=== PATIENT | male | born 1930 | race Caucasian/White ===

== ENCOUNTER → 2017-04-02 | Outpatient (CLI) | payer MEDICARE ==
[~2017-04-02] MED LIST: ASPIRIN81 M1 PO; NORVASC5 MG PO; VITAMIN D32000 UNIT PO; [UNRECOGNIZED DRUG - OTHER] PO
[2017-04-02 08:23] LABS: BASO # 0.1 10*3/uL (0.0-0.1); BASO % 0.7 % (0.0-1.0); EOS # 0.2 10*3/uL (0.0-0.4); EOS % 2.1 % (1.0-4.0); HEMATOCRIT 38.7 % (42.0-52.0); HEMOGLOBIN 12.2 g/dl (14.0-18.0); LYMPH # 1.5 10*3/uL (1.3-4.4); LYMPH % 20.2 % (27.0-41.0); MEAN CELL VOLUME 86.6 fl (80.0-94.0); MEAN CORPUSCULAR HGB 27.3 pg (27.0-31.0); MEAN CORPUSCULAR HGB CONC 31.5 g/dl (33.0-37.0); MEAN PLATELET VOLUME 10.2 fl (9.6-12.3); MONO # 0.8 10*3/uL (0.1-1.0); MONO % 10.9 % (3.0-9.0); NEUT % 65.8 % (47.0-73.0); PLATELET COUNT AUTOMATED 309 10*3/uL (130-400); RED BLOOD COUNT 4.47 10*6/uL (4.50-5.90); RED CELL DISTRI WIDTH 15.9 % (0-14.5); WHITE BLOOD COUNT 7.5 10*3/uL (4.8-10.8)
[2017-04-02 08:30] LABS: ALBUMIN 3.5 gm/dl (3.1-4.5); ALKALINE PHOSPHATASE 116 U/L (45-117); BUN 17 mg/dl (7-24); CHLORIDE 105 mmol/L (98-107); CHOLESTEROL 215 mg/dL (<200); CREATININE 1.05 mg/dL (0.70-1.30); HDL CHOLESTEROL 89 mg/dl (40-60); LDL CHOLESTEROL 105 mg/dL (9-159); POTASSIUM 4.3 mmol/L (3.5-5.1); SGOT/AST 21 IU/L (3-35); SGPT/ALT 17 U/L (12-78); SODIUM 140 mmol/L (136-145); TOTAL PROTEIN 7.4 gm/dL (6.4-8.2); TRIGLYCERIDES 106 mg/dl (<150); VLDL CHOLESTEROL 21 mg/dL (6-40)
== END | disposition home or self-care (01) ==
LOC: LAB 02:50
PROVIDERS: Internal Medicine
DX: Z12.5 Encounter for screening for malignant neoplasm of prostate (principal); I10 Essential (primary) hypertension; E78.00 Pure hypercholesterolemia, unspecified; E55.9 Vitamin D deficiency, unspecified; R35.1 Nocturia

== ENCOUNTER → 2017-10-08 | Outpatient (CLI) | payer MEDICARE ==
[2017-10-08 07:42] LABS: BASO % 0.7 % (0.0-1.0); EOS # 0.2 10*3/uL (0.0-0.4); EOS % 3.2 % (1.0-4.0); HEMATOCRIT 37.4 % (42.0-52.0); HEMOGLOBIN 11.5 g/dl (14.0-18.0); LYMPH # 1.5 10*3/uL (1.3-4.4); LYMPH % 25.8 % (27.0-41.0); MEAN CELL VOLUME 87.2 fl (80.0-94.0); MEAN CORPUSCULAR HGB 26.8 pg (27.0-31.0); MEAN CORPUSCULAR HGB CONC 30.7 g/dl (33.0-37.0); MEAN PLATELET VOLUME 10.2 fl (9.6-12.3); MONO # 0.7 10*3/uL (0.1-1.0); MONO % 13.1 % (3.0-9.0); NEUT # 3.2 10*3/uL (2.3-7.9); PLATELET COUNT AUTOMATED 281 10*3/uL (130-400); RED BLOOD COUNT 4.29 10*6/uL (4.50-5.90); RED CELL DISTRI WIDTH 16.6 % (0-14.5); WHITE BLOOD COUNT 5.7 10*3/uL (4.8-10.8)
[2017-10-08 08:10] LABS: ALBUMIN 3.5 gm/dl (3.1-4.5); BUN 15 mg/dl (7-24); CHLORIDE 106 mmol/L (98-107); CHOLESTEROL 219 mg/dL (<200); POTASSIUM 3.9 mmol/L (3.5-5.1); SODIUM 141 mmol/L (136-145)
[2017-10-08 08:21] LABS: ALKALINE PHOSPHATASE 104 U/L (45-117); CREATININE 1.06 mg/dL (0.70-1.30); HDL CHOLESTEROL 75 mg/dl (40-60); LDL CHOLESTEROL 123 mg/dL (9-159); SGOT/AST 20 IU/L (3-35); SGPT/ALT 17 U/L (12-78); TOTAL PROTEIN 7.1 gm/dL (6.4-8.2); TRIGLYCERIDES 104 mg/dl (<150); VLDL CHOLESTEROL 21 mg/dL (6-40)
== END | disposition home or self-care (01) ==
LOC: LAB 02:21
PROVIDERS: Internal Medicine
DX: I10 Essential (primary) hypertension (principal); E55.9 Vitamin D deficiency, unspecified

== ENCOUNTER → 2018-02-11 | Outpatient (CLI) | payer MEDICARE | END | disposition home or self-care (01) | LOC: LAB 10:02 | DX: I10 Essential (primary) hypertension (principal); E78.00 Pure hypercholesterolemia, unspecified; Z79.899 Other long term (current) drug therapy; D64.9 Anemia, unspecified ==

== ENCOUNTER 2019-06-21 22:18 | Inpatient (IN) | payer MEDICARE ==
[~2019-06-21] VITALS: Ht 172.7 cm; Wt 62.7 kg
[2019-06-21 22:19] VITALS: BP 131/48
[2019-06-21 23:05] VITALS: BP 107/48
[2019-06-21 23:25] LABS: HEMATOCRIT 21.7 % (42.0-52.0); MEAN CELL VOLUME 101.9 fl (80.0-94.0); MEAN CORPUSCULAR HGB 31.5 pg (27.0-31.0); MEAN CORPUSCULAR HGB CONC 30.9 g/dl (33.0-37.0); PLATELET COUNT AUTOMATED 246 10*3/uL (130-400); RED BLOOD COUNT 2.13 10*6/uL (4.50-5.90); RED CELL DISTRI WIDTH 14.2 % (0-14.5); WHITE BLOOD COUNT 28.3 10*3/uL (4.8-10.8)
[2019-06-21 23:28] LABS: HEMOGLOBIN 6.7 g/dl (14.0-18.0)
[2019-06-21 23:35] LABS: ACT PARTIAL THROMBO TIME 23.4 SECONDS (20.0-32.1)
[2019-06-21 23:45] LABS: ALBUMIN 2.9 gm/dl (3.1-4.5); CREATININE 2.18 mg/dL (0.70-1.30); POTASSIUM 4.4 mmol/L (3.5-5.1); TOTAL PROTEIN 5.8 gm/dL (6.4-8.2); TROPONIN I 0.028 ng/ml (<0.045)
[2019-06-21 23:49] LABS: BURR CELLS MODERATE; PLATELET SUFFICIENCY NORMAL (NORMAL); TOTAL CELLS COUNTED 100 #CELLS
[2019-06-21 23:50] LABS: SCHISTOCYTES FEW
[2019-06-21 23:55] LABS: OVALOCYTES MODERATE
[2019-06-22] VITALS (14 sets, daily range): BP systolic 103–134; BP diastolic 41–89
--- NOTE | 2019-06-22 00:06 | NUR ---
MD ANDERSEN AT BEDSIDE FOR TRIPLE LUMEN CENTRAL LINE PLACEMENT IN RT FEM.PT TOLERATED WELL.
--- NOTE | 2019-06-22 00:47 | NUR ---
INFUSION PROTONIX COMPLETED.
--- NOTE | 2019-06-22 00:48 | NUR ---
MRSA SWAB OBTAINED,LABELED AND SENT TO LAB.
--- NOTE | 2019-06-22 01:00 | NUR ---
A 89, admitted to ICCU, under the services of JAYCOB Beauchamp DO with a diagnosis of GI BLEED. Chief complaint is BRIGHT RED RECTAL BLOOD LOSS. Patient arrived via stretcher from ER. Monitor applied. Initial assessment completed. Vital signs taken and recorded. JAYCOB BEAUCHAMP DO notified of admission to the unit. Orders received. See assessment for past medical history, medications and allergies. Patient and/or family oriented to unit. [facility]U visitation policy reviewed. Clothing/patient valuable form completed. WARREN SHELDON
--- NOTE | 2019-06-22 01:00 | NUR ---
PER MD ANDERSEN ORDER OF 0.45 SODIUM CHLORIDE ON HOLD AT THIS TIME. UNAWARE OF ORDER.
--- NOTE | 2019-06-22 01:50 | NUR ---
JULIETA BLAKE AND BUTCH NOTIFIED OF LACTIC ACID 9.1 AND TROPONIN 0.037.
--- NOTE | 2019-06-22 02:08 | NUR ---
ER DID NOT NOTIFY DR BALES PER REPORTED REQUEST. DR RAE NOTIFIED OF THIS AND WANTS ME TO CALL HIM NOW.
--- NOTE | 2019-06-22 02:15 | NUR ---
DR BALES NOTIFIED OF CONSULT AND CURRENT PLAN OF CARE. NO NEW ORDERS RECEIVED.
--- NOTE | 2019-06-22 02:29 | NUR ---
ZOFRAN ORDERED AND PER PT REQUEST FOR NAUSEA.
--- NOTE | 2019-06-22 03:12 | NUR ---
PT STATES ZOFRAN EFFECTIVE FOR NAUSEA.
--- NOTE | 2019-06-22 04:00 | NUR ---
FIRST UNIT PRBC'S DONE.
--- NOTE | 2019-06-22 04:11 | NUR ---
LAB HERE FOR TROPONIN AND LACTIC ACID. I INFORMED DR RAE THAT FIRST UNIT PACKED CELLS JUST FINISHED AND SENT FOR 2ND UNIT. CBC WILL BE DRAWN AT 0900 APPROXIMATELY 2HRS POST TRANSFUSION.
--- NOTE | 2019-06-22 04:30 | NUR ---
SECOND UNIT OF PRBC'S UP WITH NEW TUBING.
[2019-06-22 04:57] LABS: ALBUMIN 2.5 gm/dl (3.1-4.5); CREATININE 1.79 mg/dL (0.70-1.30); FREE T4 0.85 ng/dl (0.76-1.46); PHOSPHOROUS 3.5 mg/dL (2.5-4.9); POTASSIUM 4.7 mmol/L (3.5-5.1)
--- NOTE | 2019-06-22 04:57 | NUR ---
NO S&S OF TRANSFUSION REACTION.
[2019-06-22 05:02] LABS: THYROID STIM HORMONE (HS) 2.57 uIU/ml (0.358-4.75)
--- NOTE | 2019-06-22 05:11 | NUR ---
DR BLAKE NOTIFIED OF LACTIC ACID DOWN TO 2.5, TROPONIN 0.046 AND THAT PT HASN'T VOIDED SINCE HIS ADMISSION AT 0100. PT STATES "I HAVEN'T BEEN DRINKING MUCH AT ALL", SMILES, AND TELLS ME A JOKE. VSS. NO S&S OF BLEEDING.
--- NOTE | 2019-06-22 06:30 | NUR ---
SECOND UNIT DONE.
--- NOTE | 2019-06-22 06:42 | NUR ---
UP TO BSC AND VOIDING IN URINAL AT THIS TIME.
--- NOTE | 2019-06-22 06:48 | NUR ---
PT HAD BEEN GETTING OUT OF BED BY HIMSELF. HE ONLY VOIDED 50CC GEE URINE. HE DID NOT MOVE HIS BOWELS. REINFORCED NEED FOR CALL LIGHT USAGE. RETURN DEMONSTRATION DONE. BED EXIT ALARM ON FOR SAFETY.
--- NOTE | 2019-06-22 08:00 | NUR ---
FAMILY AND PATIENT HAS AGREED THAT THEY WANT TO BE TRANSFERRED TO [facility]. DR. BALES AND SURGERY TEAM NOTIFIED
[2019-06-22 09:06] LABS: VITAMIN D, 25-HYDROXY 53.8 ng/mL (30-100)
[2019-06-22 09:22] LABS: HEMATOCRIT 23.4 % (42.0-52.0); HEMOGLOBIN 7.8 g/dl (14.0-18.0); MEAN CORPUSCULAR HGB 31.2 pg (27.0-31.0); MEAN CORPUSCULAR HGB CONC 33.3 g/dl (33.0-37.0); MEAN PLATELET VOLUME 10.6 fl (9.6-12.3); NUCLEATED RED BLOOD CELL 0.1 % (0.0-0.0); RED CELL DISTRI WIDTH 14.3 % (0-14.5); WHITE BLOOD COUNT 19.4 10*3/uL (4.8-10.8)
[2019-06-22 09:23] LABS: MEAN CELL VOLUME 93.6 fl (80.0-94.0); PLATELET COUNT AUTOMATED 152 10*3/uL (130-400)
--- NOTE | 2019-06-22 09:40 | NUR ---
MIQUEL CARD [id number] Please refer to the physician's history and physical for past medical history, comorbid conditions, and allergies. Diagnosis: GALINDO GI BLEED HYPONATREMIA ACUTE KIDNEY FAILURE W/ Martín Score: 17,AT RISK WOUND DESCRIPTIONS: Wound Number: 1 Location of the wound: left lateral aspect of knee Type of wound: abrasion Thickness: Partial Size: 2.5cm x 1.7cm x <0.1cm Tunneling: none Undermining: none Sinus Tract: none Presence of Exudate: none Amount: None Color: Red, brown Odor: None Periwound Skin Appearance: Normal Wound edges: approximated Pain (associated with wound): none at time of assessment How does patient state this happened? pt stated that he was down for several hours and was trying to scoot across the floor Wound Number: 2 Ecchymotic area noted to right foot metarsal at time of assessment. No open areas noted at time of assessment. Wound Number: 3 Location of the wound: right ankle Type of wound: abrasion Thickness: Partial Size: 0.6cm x 0.4cm x <0.1cm Tunneling: none Undermining: none Sinus Tract: none Presence of Exudate: none Amount: None Color: Brown, red Odor: None Periwound Skin Appearance: ecchymotic areas noted to surrounding area at time of assessment. Wound edges: approximated Pain (associated with wound): none at time of assessment How does patient state this happened? pt stated that he was down for several hours and was trying to scoot across the floor Wound Number: 4 Ecchymotic area noted to left foot metarsal at time of assessment. No open areas noted at time of assessment. Wound Number: 5 Location of the wound: right knee Type of wound: abrasion Thickness: Partial Size: 0.8cm x 0.4cm x <0.1cm Tunneling: none Undermining: none Sinus Tract: none Presence of Exudate: none Amount: None Color: Red Odor: None Periwound Skin Appearance: Normal Wound edges: approximated Pain (associated with wound): none at time of assessment How does patient state this happened? pt stated that he was down for several hours and was trying to scoot across the floor No open areas noted to buttocks at time of assessment. Patient stated he was laying down for about 12 hours. No drainage noted at time of assessment. Surface the patient is resting on: Isoflex SKIN PREVENTION RECOMMENDATION: 1. Pressure redistribution support surface as appropriate 2. Elevate heels 3. Remove boots/TEDS every shift and reapply 4. Head of bed 30 degrees as tolerated 5. Assess nutrition and hydration 6. Manage moisture 7. Avoid the use of containment devices while in bed 8. Use absorptive products on surfaces limit layers of linens on bed 9. Turn and reposition every 1-2 hours in bed and every 1 hour in chair as tolerated 10. Weight shifts every 15 minutes while up in chair 11. Offloading with pillows or device to keep heels elevated off bed 12. Monitor skin at least every shift 13. Inspect under medical devices twice a day WOUND TREATMENT RECOMMENDATIONS: Ria marsh guidelines: Cleanse right knee, right lateral aspect of ankle, and left lateral aspect of knee with nss and apply sureprep around the wound hydrogel to wound bed and cover with optifoam gentle. Heel raiser pro boots to bilateral feet at time of assessment. Wheelchair cushion when oob.
[2019-06-22 09:42] LABS: OVALOCYTES FEW; PLATELET SUFFICIENCY NORMAL (NORMAL); POLYCHROMASIA SLIGHT; TOTAL CELLS COUNTED 100 #CELLS
[2019-06-22 09:43] LABS: SCHISTOCYTES FEW
--- NOTE | 2019-06-22 10:01 | NUR ---
Occupational therapy orders received and chart reviewed. Per discussion with nursing, patient is being transferred out today. No OT services needed at this time. Thank you. Kayla Hamilton, OTR/L
[2019-06-22] MEDS ORDERED: PROTONIX40 MG PO (10:29)
--- NOTE | 2019-06-22 10:45 | NUR ---
PHYSICAL THERAPY Chart reviewed deferred eval at this time as per nurse Kristina be being transfered to [facility] today. Will cancel PT orders at this time due to transfer to another facility. Genesis Manzanares PT
--- NOTE | 2019-06-22 10:45 | NUR ---
Wound care recommendations given to nurse caring for patient.
--- NOTE | 2019-06-22 13:10 | NUR ---
ONE CALL CALLED AND QUESTIONED REGARDING STATUS OF BED. THEY DO NOT HAVE A BED AT THIS TIME.
--- NOTE | 2019-06-22 13:20 | NUR ---
ONE CALL RETURNED CALL AND UPDATED ON CURRENT VITAL SIGNS AND HH RESULTS. THEY STATE THAT THEY SHOULD HAVE A BED THIS AFTERNOON.
--- NOTE | 2019-06-22 16:55 | NUR ---
REPORT GIVEN TO [facility]. FAMILY CALLED AND NOTIFIED OF TRANSFER
--- NOTE | 2019-06-22 18:33 | NUR ---
DISCHARGED TO [facility] VIA [facility].
== END 2019-06-22 18:33 | disposition short-term general hospital (02) | DRG 377 ==
LOC: ED 22:18 → EDHOLD 06-22 00:30 → ICCU 06-22 00:30
PROVIDERS: Emergency Medicine; Internal Medicine; ADMIT Internal Medicine
PROC: 30233N1 Transfusion of Nonautologous Red Blood Cells into Peripheral Vein, Percutaneous Approach (ICD-10-PCS; principal; 2019-06-22)
DX: K92.2 Gastrointestinal hemorrhage, unspecified (principal); N17.0 Acute kidney failure with tubular necrosis; E43 Unspecified severe protein-calorie malnutrition; E87.0 Hyperosmolality and hypernatremia; E87.2 Acidosis; R65.10 Systemic inflammatory response syndrome (SIRS) of non-infectious origin without acute organ dysfunction; E86.0 Dehydration; R73.9 Hyperglycemia, unspecified; R74.0 Nonspecific elevation of levels of transaminase and lactic acid dehydrogenase [LDH]; D53.9 Nutritional anemia, unspecified; H40.9 Unspecified glaucoma; E55.9 Vitamin D deficiency, unspecified; E87.8 Other disorders of electrolyte and fluid balance, not elsewhere classified; I10 Essential (primary) hypertension; Z68.21 Body mass index [BMI] 21.0-21.9, adult

== ENCOUNTER → 2019-11-25 | Outpatient (CLI) | payer MEDICARE ==
[~2019-11-25] MED LIST changes: +PROTONIX40 MG PO
[2019-11-25 14:21] LABS: BASO # 0.1 10*3/uL (0.0-0.1); BASO % 0.9 % (0.0-1.0); EOS # 0.2 10*3/uL (0.0-0.4); EOS % 2.6 % (1.0-4.0); HEMATOCRIT 37.3 % (42.0-52.0); LYMPH # 1.3 10*3/uL (1.3-4.4); LYMPH % 22.6 % (27.0-41.0); MEAN CELL VOLUME 91.6 fl (80.0-94.0); MEAN CORPUSCULAR HGB 28.7 pg (27.0-31.0); MEAN CORPUSCULAR HGB CONC 31.4 g/dl (33.0-37.0); MEAN PLATELET VOLUME 10.2 fl (9.6-12.3); MONO # 0.6 10*3/uL (0.1-1.0); MONO % 10.9 % (3.0-9.0); NEUT # 3.6 10*3/uL (2.3-7.9); NEUT % 62.6 % (47.0-73.0); PLATELET COUNT AUTOMATED 257 10*3/uL (130-400); RED BLOOD COUNT 4.07 10*6/uL (4.50-5.90); RED CELL DISTRI WIDTH 14.9 % (0-14.5); WHITE BLOOD COUNT 5.7 10*3/uL (4.8-10.8)
== END | disposition home or self-care (01) ==
LOC: LAB 13:37
DX: D50.9 Iron deficiency anemia, unspecified (principal)